=== PATIENT | female | born 1945 | race Caucasian/White ===

== ENCOUNTER 2018-11-25 10:56 | Emergency (ER) | payer BC, OTHER ==
[2018-11-25] MEDS: IOHEXOL 100 ML (17:23)
[2018-11-25] MEDS: SOD CHLORIDE 0.9% 100 ML (17:23)
== END 2018-11-25 20:45 | disposition home or self-care (01) ==
LOC: E/R 10:56
DX: L03.115 Cellulitis of right lower limb (principal); J45.909 Unspecified asthma, uncomplicated
CPT/HCPCS: 36415; 73706; 80048; 85025; 85610; 85730; 93926; 93971; 99284-25